=== PATIENT | male | born 1975 | race Caucasian/White ===

== ENCOUNTER 2017-11-18 17:59 | Emergency (ER) | payer SELFPAY ==
--- NOTE | 2017-11-18 18:48 | RAD REPORT ---
EXAM DESCRIPTION: CT - Head Brain Wo Cont - 11/18/2017 6:25 pm CLINICAL HISTORY: Right arm and leg numbness COMPARISON: None. TECHNIQUE: Axial 5 mm thick images of the head were obtained without IV contrast. All CT scans are performed using dose optimization technique as appropriate and may include automated exposure control or mA/KV adjustment according to patient size. FINDINGS: No intracranial hemorrhage, mass, edema or shift of mid-line structures. No acute infarcti on changes seen. No abnormal extra-axial fluid collections. Ventricles are normal. Mastoid air cells are clear. Patchy paranasal sinus mucosal thickening. No air-fluid level. No acute bony findings. Exam is degraded by motion. IMPRESSION: Negative non-contrast CT head examination for acute finding.
[2017-11-18 18:53] LABS: Protime INR 0.98
[2017-11-18 18:54] LABS: Absolute Monocytes 0.5 K/uL (0.1-1.3); Absolute Neutrophil 2.4 K/uL (1.8-8.0); Basophils % 0.9 % (0-1.3); Hematocrit 39.3 % (39.6-49.0); Lymphocytes % 35.9 % (15.3-44.8); MCH 31.8 pg (27.0-35.0); MCV 93.4 fL (80-100); RBC Red Blood Cell Count 4.21 M/uL (4.33-5.43)
--- NOTE | 2017-11-18 19:18 | RAD REPORT ---
EXAM DESCRIPTION: RAD - Chest Single View - 11/18/2017 6:35 pm CLINICAL HISTORY: Shortness of breath, code stroke COMPARISON: December 2016 TECHNIQUE: AP portable chest image was obtained 1834 hours . FINDINGS: Low lung volumes noted similar to comparison. No peripheral mass or consolidation. No acut e failure or volume overload findings. Lung markings are similar to comparison. Heart and vasculature are normal. No measurable pleural effusion and no pneumothorax. No gross bony abnormality seen. No a cute aortic findings suspected. IMPRESSION: No acute cardiopulmonary process. No significant change from comparison.
[2017-11-18 19:35] LABS: Bicarbonate 24 mEq/L (21-31); Glucose Level 97 mg/dL (65-120); Sodium Level 135 mEq/L (135-145)
[2017-11-18 19:41] LABS: ALT/SGPT 50 IU/L (10-60); AST/SGOT 58 IU/L (10-42); Albumin 4.5 g/dL (3.2-5.5); Alkaline Phosphatase 68 IU/L (42-121); BUN Blood Urea Nitrogen 7 mg/dL (6-20); Bilirubin Direct 0.1 mg/dL (0-0.2); Bilirubin Total 0.3 mg/dL (0.3-1.2); Creatine Phosphokinase 258 IU/L (22-269)
[2017-11-18] MEDS ORDERED: NA CHLORIDE 0.9% 1,000 ML ONE ×2 (19:41→19:42)
[2017-11-18] MEDS ORDERED: THIAMINE 200 MG/2 ML INJ ONE (19:42)
[2017-11-18] MEDS ORDERED: FOLIC ACID 5 MG/ML VIAL ONE (19:44)
[2017-11-18] MEDS ORDERED: ONDANSETRON 4 MG/2 ML VIAL ONE (19:47)
[2017-11-18 19:50] LABS: Alcohol Serum/Plasma 414 mg/dl
--- NOTE | 2017-11-18 20:07 | ER ---
Nurse's Notes [facility] Name: Ned Stallworth Age: 42 yrs Sex: Male : 1975 Arrival Date: 11/18/2017 Time: 18:02 Bed 6 Private MD: None, None Diagnosis: Chest pain, unspecified;Alcohol abuse;Alcohol abuse counseling and surveillance Presentation: 11/18 18:04 Presenting complaint: Child states: "He's been saying that he feels like he's having a sv stroke. Saying that he can't lift his right arm or leg." Pt states he's unable to lift his right arm, movement noted to right arm slightly. Pt reports he's been on a "binger" for the past 2 months. Pt has been drinking beer all day. Daughter reports that he was also saying that he's been having chest pain. Pt reports not being able to lift his right arm about 5 hours ago. Transition of care: patient was not received from another setting of care. Onset of symptoms was November 18, 2017. 18:04 Method Of Arrival: Wheelchair sv 18:04 Acuity: ALISTAIR 2 sv 18:10 Care prior to arrival: None. sv 19:05 Risk Assessment: Do you want to hurt yourself or someone else? Patient reports no ph desire to harm self or others. Initial Sepsis Screen: Does the patient meet any 2 criteria? No. Patient's initial sepsis screen is negative. Does the patient have a suspected source of infection? No. Patient's initial sepsis screen is negative. Historical: - Allergies: 18:09 No Known Allergies; sv - Home Meds: 18:09 aspirin 81 mg Oral TbEC once daily [Active]; sv - PMHx: 18:09 Alcoholism; sv - PSHx: 18:09 Knee surgery; sv - Immunization history:: Adult Immunizations up to date. - Social history:: Smoking status: Patient/guardian denies using tobacco, Patient uses alcohol, on a daily basis. - Ebola Screening: : No symptoms or risks identified at this time. Screenin:04 Abuse screen: Denies threats or abuse. Denies injuries from another. Nutritional ph screening: No deficits noted. Tuberculosis screening: No symptoms or risk factors identified. Fall Risk None identified. Assessment: 18:25 Reassessment: back from CT. Pt is talking and joking with hospital staff. Lab at bedside to obtain lab samples. OLE Diaz also at bedside to assess patient. 18:35 General: Appears in no apparent distress. comfortable, slender, well groomed, Behavior ph is calm, cooperative, appropriate for age, Smells of alcohol. Pain: Complains of pain in right clavicle and anterior aspect of right upper chest Pain radiates to right arm Quality of pain is described as tingling, numb, Pain began 6 hours ago. Neuro: Level of Consciousness is awake, alert, obeys commands, Oriented to person, place, time, situation, Moves all extremities. Full function Speech is normal, Facial symmetry appears normal, Facial symmetry: tongue is midline, Pupils are PERRLA, Intact Reports numbness in right arm Denies weakness dizziness, difficulty swallowing, headache. Cardiovascular: Reports chest pain, Denies lightheadedness, nausea, shortness of breath, Capillary refill < 3 seconds Patient's skin is warm and dry. Chest pain quality is tingling" is located in right anterior chest wall radiates to right arm(s). Respiratory: Airway is patent Respiratory effort is even, unlabored, Respiratory pattern is regular, symmetrical, Denies cough. GI: No signs and/or symptoms were reported involving the gastrointestinal system. Derm: Skin is intact, is healthy with good turgor, Skin is pink, warm \\T\\ dry. Musculoskeletal: Circulation, motion, and sensation intact. Range of motion: intact in all extremities. 20:00 Reassessment: Explained to pt that he needs fluids and that we could send him home tl2 after fluids infuse, pt understood and was cooperative. A few minutes after I left room, pt had pulled IV out and said he wanted to go home. OLE Braden at bedside to talk to pt. 20:14 Reassessment: pt left prior to signing d/c paperwork.. ak1 Vital Signs: 18:13 BP 133 / 83; Pulse 76; Resp 18; Pulse Ox 98% ; Weight 86.18 kg; Height 6 ft. (182.88 sv cm); 18:13 Body Mass Index 25.77 (86.18 kg, 182.88 cm) sv NIH Stroke Scale Scores: 19:24 NIHSS Score: 0 jr8 ED Course: 18:02 Patient arrived in ED. mr 18:02 None, None is Private Physician. mr 18:08 Triage completed. sv 18:09 Arm band placed on left wrist. sv 18:15 Sampson Tolbert PA is PHCP. jr8 18:15 Reyes Chance MD is Attending Physician. jr8 18:[address], RN is Primary Nurse. sg 18:20 Marcie Jacinto, RN is Primary Nurse. sg 18:26 CT Head Brain wo Cont In Process Unspecified. EDMS 18:33 X-ray completed. Portable x-ray completed in exam room. Patient tolerated procedure mh1 well. 18:36 Chest Single View In Process Unspecified. EDMS 19:05 Patient has correct armband on for positive identification. Bed in low position. Call ph light in reach. Pulse ox on. NIBP on. Warm blanket given. Pillow given. 19:06 No provider procedures requiring assistance completed. ph 19:48 Inserted saline lock: 20 gauge in left antecubital area, using aseptic technique. ak1 20:10 IV discontinued, pt tore out his own IV. ak1 Administered Medications: 19:47 Drug: NS 0.9% 1000 ml Route: IV; Rate: 1000 ml; Site: left antecubital; ak1 20:11 Follow up: IV Status: pt removed his IV ak1 19:53 Drug: Zofran 4 mg Route: IVP; Site: right antecubital; tl2 20:12 Follow up: Response: No adverse reaction ak1 19:54 Drug: Banana Bag - (NS 0.9% 1000 ml, foLIC Acid 1 mg, Thiamine 100 mg, Multivitamin 1 tl2 amp) Route: IV; Rate: calculated rate; Site: right antecubital; 20:11 Follow up: IV Status: pt removed his IV ak1 Point of Care Testing: Blood Glucose: 18:09 Blood Glucose: 84 mg/dL; sv Ranges: Outcome: 20:06 Discharge ordered by . jr8 20:08 Discharged to home ambulatory, with family, pt tore out his IV and refused fluids. pt ak1 mother taking pt home. 20:08 Condition: stable 20:08 Discharge instructions given to patient, family, Instructed on discharge instructions, follow up and referral plans. 20:14 Patient left the ED. ak1 NIH Stroke Scale - NIH Stroke Score Date: 11/18/2017 Time: 19:24 Total Score = 0 1a. Level of Consciousness (LOC) - 0(Alert) 1b. Level of Consciousness (LOC) (Year \\T\\ Age) - 0(Both) 1c. LOC Commands (Open \\T\\ Closes Eyes/Special Effects Designer) - 0(Both) 2. Best Gaze (Lateral Gaze Paresis) - 0(Normal) 3. Visual Field Loss - 0(No visual loss) 4. Facial Palsy - 0(Normal) 5a. Left Arm: Motor (10-second hold) - 0(No drift) 5b. Right Arm: Motor (10-second hold) - 0(No drift) 6a. Left Leg: Motor (5-second hold - always test supine) - 0(No drift) 6b. Right Leg: Motor (5-second hold - always test supine) - 0(No drift) 7. Limb Ataxia (finger/nose \\T\\ heel/rolle - test with eyes open) - 0(Absent) 8. Sensory Loss (pinprick arms/legs/face) - 0(Normal) 9. Best Language: Aphasia (description/naming/reading) - 0(No aphasia) 10. Dysarthria (speech clarity - read or repeat words) - 0(Normal) 11. Extinction and Inattention (visual/tactile/auditory/spatial/personal) - 0(No abnormality) Initials: jrFrancois Signatures: Dispatcher [employer] Pati Michael RN RN sv Gay, Steven RN AUBREY Trinity Sena Jenny Lilly 1 Amy Martin RN RN ss Sampson Tolbert PA PA jr8 Cortney Avery RN RN ak1 Marcie Jacinto RN RN Shanita Kent, AUBREY RN tl2 Corrections: (The following items were deleted from the chart) 18:11 18:04 Presenting complaint: Child states: "He's been saying that he feels like sv he's having a stroke. Saying that he can't lift his right arm or leg." Pt states he's unable to lift his left arm, movement noted to right arm slightly. Pt reports he's been on a "binger" for the past 2 months. Pt has been drinking beer all day. Daughter reports that he was also saying that he's been having chest pain. sv
--- NOTE | 2017-11-18 20:08 | EDPHYS ---
Physician Documentation [facility] Name: Ned Stallworth Age: 42 yrs Sex: Male : 1975 Arrival Date: 11/18/2017 Time: 18:02 Bed 6 Private MD: None, None ED Physician Reyes Chance HPI: 11/18 19:24 This 42 yrs old Male presents to ER via Wheelchair with complaints of jr8 Numbness Of Arm/chest pain. 19:24 The patient or guardian reports chest pain that is located primarily in the anterior jr8 chest wall, right. Onset: acutely, today. The pain radiates to the right arm. Associated signs and symptoms: The patient has no apparent associated signs or symptoms. The chest pain is described as sharp. Duration: The patient or guardian reports multiple episodes. Modifying factors: The symptoms are alleviated by nothing. the symptoms are aggravated by movement, palpation of area. Severity of pain: At its worst the pain was mild in the emergency department the pain is unchanged. The patient has not experienced similar symptoms in the past. The patient has not recently seen a physician. Patient stated that his daughter made him come up here. Stated that he was having right sided chest pain and could not move his arm. Had numbness and tingling to arm. Denies having this in past. Denies trauma. Stated that he has had upwards of 30 beers today. Has been binge drinking for the past few weeks . Historical: - Allergies: 18:09 No Known Allergies; sv - Home Meds: 18:09 aspirin 81 mg Oral TbEC once daily [Active]; sv - PMHx: 18:09 Alcoholism; sv - PSHx: 18:09 Knee surgery; sv - Immunization history:: Adult Immunizations up to date. - Social history:: Smoking status: Patient/guardian denies using tobacco, Patient uses alcohol, on a daily basis. - Ebola Screening: : No symptoms or risks identified at this time. ROS: 19:24 Eyes: Negative for injury, pain, redness, and discharge, ENT: Negative for injury, jr8 pain, and discharge, Neck: Negative for injury, pain, and swelling, Respiratory: Negative for shortness of breath, cough, wheezing, and pleuritic chest pain, Abdomen/GI: Negative for abdominal pain, nausea, vomiting, diarrhea, and constipation, Back: Negative for injury and pain, MS/Extremity: Negative for injury and deformity, Skin: Negative for injury, rash, and discoloration. 19:24 Cardiovascular: Positive for chest pain, Negative for edema, orthopnea, palpitations, paroxysmal nocturnal dyspnea. 19:24 Neuro: Positive for numbness, tingling, weakness, of the right arm. Exam: 19:24 Head/Face: Normocephalic, atraumatic. Eyes: Pupils equal round and reactive to light, jr8 extra-ocular motions intact. Lids and lashes normal. Conjunctiva and sclera are non-icteric and not injected. Cornea within normal limits. Periorbital areas with no swelling, redness, or edema. ENT: Nares patent. No nasal discharge, no septal abnormalities noted. Tympanic membranes are normal and external auditory canals are clear. Oropharynx with no redness, swelling, or masses, exudates, or evidence of obstruction, uvula midline. Mucous membranes moist. Neck: Trachea midline, no thyromegaly or masses palpated, and no cervical lymphadenopathy. Supple, full range of motion without nuchal rigidity, or vertebral point tenderness. No Meningismus. Cardiovascular: Regular rate and rhythm with a normal S1 and S2. No gallops, murmurs, or rubs. Normal PMI, no JVD. No pulse deficits. Respiratory: Lungs have equal breath sounds bilaterally, clear to auscultation and percussion. No rales, rhonchi or wheezes noted. No increased work of breathing, no retractions or nasal flaring. Abdomen/GI: Soft, non-tender, with normal bowel sounds. No distension or tympany. No guarding or rebound. No evidence of tenderness throughout. Back: No spinal tenderness. No costovertebral tenderness. Full range of motion. Skin: Warm, dry with normal turgor. Normal color with no rashes, no lesions, and no evidence of cellulitis. MS/ Extremity: Pulses equal, no cyanosis. Neurovascular intact. Full, normal range of motion. Pain with range of motion Neuro: Awake and alert, GCS 15, oriented to person, place, time, and situation. Cranial nerves II-XII grossly intact. Motor strength 5/5 in all extremities. Sensory grossly intact. Cerebellar exam normal. Normal gait. 19:24 Chest/axilla: Inspection: normal, Palpation: tenderness, that is moderate, of the jr8 right clavicle and anterior aspect of right upper chest. Vital Signs: 18:13 BP 133 / 83; Pulse 76; Resp 18; Pulse Ox 98% ; Weight 86.18 kg; Height 6 ft. (182.88 sv cm); 18:13 Body Mass Index 25.77 (86.18 kg, 182.88 cm) sv NIH Stroke Scale Scores: 19:24 NIHSS Score: 0 jr8 MDM: 18:15 Patient medically screened. 8 19:28 ED course: Patient initially presented with chest pain and arm pain. Stated to triage jr8 that he was having trouble moving arm. Patient inebriated. Stated that it started about 5 hours ago. Patient out of stroke window. Patient with no deficits. Based on physical exam and initial questioning by me it does not appear that he has had a stroke. S/S do no indicate subacute or acute stroke. More then likely intoxication with atypical chest pain . 20:02 Differential diagnosis: acute myocardial infarction, acute pericarditis, chest wall jr8 pain, pneumonia, pulmonary embolus, thoracic aortic disection, unstable angina, CVA, TIA, ETOH abuse with intoxication. Data reviewed: vital signs, nurses notes, lab test result(s), EKG, radiologic studies, CT scan, plain films. ED course: Mother of patient present in room. Patient alert to person, place, time, event. Patient wants to go home and does not want fluids. Patient hemodynamically stable. Labs normal. Negative troponin, xray, ekg, and CT of head. Can move legs and arms. Continues to have no s/s for acute stroke. Mother willing to watch over him at home. Recommended he get help for his drinking. If he were to worsen to come back. . 11/18 18:12 Order name: Glucose, Ancillary Testing; Complete Time: 18:21 EDME 11/18 18:16 Order name: Basic Metabolic Panel; Complete Time: 19:53 [facility] 11/18 18:16 Order name: CBC with Diff; Complete Time: 19:14 [facility] 11/18 18:16 Order name: ETOH Level; Complete Time: 19:53 [facility] 11/18 18:16 Order name: Hepatic Function; Complete Time: 19:53 [facility] 11/18 18:16 Order name: PT-INR; Complete Time: 19:04 [facility] 11/18 18:17 Order name: CPK; Complete Time: 19:53 [facility] 11/18 18:17 Order name: Troponin (emerg Dept Use Only); Complete Time: 19:14 [facility] 11/18 18:17 Order name: CT Head Brain wo Cont; Complete Time: 18:51 [facility] 11/18 18:36 Order name: Magnesium; Complete Time: 19:53 EDMS 11/18 19:59 Order name: Urine Dipstick--Ancillary (enter results) eb 11/18 19:59 Order name: Urine Dipstick-Ancillary EDME 11/18 18:16 Order name: EKG - Nurse/Tech; Complete Time: 19:07 [facility] 11/18 18:16 Order name: IV Saline Lock; Complete Time: 19: [facility] 11/18 18:16 Order name: Labs collected and sent; Complete Time: 19:07 [facility] 11/18 18:16 Order name: Urine Dipstick-Ancillary (obtain specimen); Complete Time: 19:48 [facility] 11/18 18:17 Order name: Accucheck; Complete Time: 19:07 [facility] 11/18 18:17 Order name: Cardiac monitoring; Complete Time: 19:07 [facility] 11/18 18:17 Order name: NPO; Complete Time: 19:07 [facility] 11/18 18:17 Order name: O2 Per Protocol; Complete Time: 19:11 [facility] 11/18 18:17 Order name: O2 Sat Monitoring; Complete Time: 19:11 [facility] 11/18 18:34 Order name: Chest Single View; Complete Time: 19:23 EDMS Administered Medications: 19:47 Drug: NS 0.9% 1000 ml Route: IV; Rate: 1000 ml; Site: left antecubital; ak1 20:11 Follow up: IV Status: pt removed his IV ak1 19:53 Drug: Zofran 4 mg Route: IVP; Site: right antecubital; tl2 20:12 Follow up: Response: No adverse reaction ak1 19:54 Drug: Banana Bag - (NS 0.9% 1000 ml, foLIC Acid 1 mg, Thiamine 100 mg, Multivitamin 1 tl2 amp) Route: IV; Rate: calculated rate; Site: right antecubital; 20:11 Follow up: IV Status: pt removed his IV ak1 Point of Care Testing: Blood Glucose: 18:09 Blood Glucose: 84 mg/dL; sv Ranges: Critical Glucose Levels:Adult <50 mg/dl or >400 mg/dl <40 mg/dl or >180 mg/dl Disposition: 11/19 07:26 Co-signature as Attending Physician, Reyes Chance MD I agree with the assessment and anabel plan of care. Disposition: 11/18/17 20:06 Discharged to Home. Impression: Chest pain, unspecified, Alcohol abuse, Alcohol abuse counseling and surveillance. - Condition is Stable. - Discharge Instructions: Alcohol and Drug Addiction, Finding Treatment, Alcohol Intoxication, Nonspecific Chest Pain, Chest Wall Pain, Alcohol Abuse and Nutrition, Aspirin and Your Heart. - Medication Reconciliation Form, Thank You Letter, Antibiotic Education, Prescription Opioid Use form. - Follow up: Private Physician; When: Tomorrow; Reason: Recheck today's complaints, Continuance of care, Re-evaluation by your physician. - Problem is new. - Symptoms have improved. NIH Stroke Scale - NIH Stroke Score Date: 11/18/2017 Time: 19:24 Total Score = 0 1a. Level of Consciousness (LOC) - 0(Alert) 1b. Level of Consciousness (LOC) (Year \T\ Age) - 0(Both) 1c. LOC Commands (Open \T\ Closes Eyes/Senior Windows Administrator) - 0(Both) 2. Best Gaze (Lateral Gaze Paresis) - 0(Normal) 3. Visual Field Loss - 0(No visual loss) 4. Facial Palsy - 0(Normal) 5a. Left Arm: Motor (10-second hold) - 0(No drift) 5b. Right Arm: Motor (10-second hold) - 0(No drift) 6a. Left Leg: Motor (5-second hold - always test supine) - 0(No drift) 6b. Right Leg: Motor (5-second hold - always test supine) - 0(No drift) 7. Limb Ataxia (finger/nose \T\ heel/rolle - test with eyes open) - 0(Absent) 8. Sensory Loss (pinprick arms/legs/face) - 0(Normal) 9. Best Language: Aphasia (description/naming/reading) - 0(No aphasia) 10. Dysarthria (speech clarity - read or repeat words) - 0(Normal) 11. Extinction and Inattention (visual/tactile/auditory/spatial/personal) - 0(No abnormality) Initials: 8 Signatures: Dispatcher [employer] EDME Pati Ferrer RN Reyes Carrington MD MD cha Roszak, Josh, PA PA jr8 Cortney Avery RN RN ak1 Marcie Jacinto RN RN Shanita Lee, RN RN tl2 Corrections: (The following items were deleted from the chart) 11/18 18:36 18:19 MAGNESIUM+[id number].[email or web address].BRZ ordered. [facility] EDME 19:32 19:28 ED course: Patient initially presented with chest pain and arm pain. jr8 Stated to triage that he was having trouble moving arm. Patient inebriated. Stated that it started about 5 hours ago. Patient out of stroke window. Patient with no deficits. Based on physical exam and initial questioning by me it does not appear that he has had a stroke. S/S do no indicate subacute or acute stroke . jr8 20:06 19:24 Head/Face: Normocephalic, atraumatic. Eyes: Pupils equal round and jr8 reactive to light, extra-ocular motions intact. Lids and lashes normal. Conjunctiva and sclera are non-icteric and not injected. Cornea within normal limits. Periorbital areas with no swelling, redness, or edema. ENT: Nares patent. No nasal discharge, no septal abnormalities noted. Tympanic membranes are normal and external auditory canals are clear. Oropharynx with no redness, swelling, or masses, exudates, or evidence of obstruction, uvula midline. Mucous membranes moist. Neck: Trachea midline, no thyromegaly or masses palpated, and no cervical lymphadenopathy. Supple, full range of motion without nuchal rigidity, or vertebral point tenderness. No Meningismus. Cardiovascular: Regular rate and rhythm with a normal S1 and S2. No gallops, murmurs, or rubs. Normal PMI, no JVD. No pulse deficits. Respiratory: Lungs have equal breath sounds bilaterally, clear to auscultation and percussion. No rales, rhonchi or wheezes noted. No increased work of breathing, no retractions or nasal flaring. Abdomen/GI: Soft, non-tender, with normal bowel sounds. No distension or tympany. No guarding or rebound. No evidence of tenderness throughout. Back: No spinal tenderness. No costovertebral tenderness. Full range of motion. Skin: Warm, dry with normal turgor. Normal color with no rashes, no lesions, and no evidence of cellulitis. MS/ Extremity: Pulses equal, no cyanosis. Neurovascular intact. Full, normal range of motion. Neuro: Awake and alert, GCS 15, oriented to person, place, time, and situation. Cranial nerves II-XII grossly intact. Motor strength 5/5 in all extremities. Sensory grossly intact. Cerebellar exam normal. Normal gait. jr8 20:14 20:06 11/18/2017 20:06 Discharged to Home. Impression: Chest pain, unspecified; ak1 Alcohol abuse; Alcohol abuse counseling and surveillance. Condition is Stable. Forms are Medication Reconciliation Form, Thank You Letter, Antibiotic Education, Prescription Opioid Use. Follow up: Private Physician; When: Tomorrow; Reason: Recheck today's complaints, Continuance of care, Re-evaluation by your physician. Problem is new. Symptoms have improved. jr8
[2017-11-18 20:30] LABS: Urine Blood NEGATIVE (NEG); Urine Glucose NEGATIVE (NEG); Urine Protein NEGATIVE (NEG); Urine Specific Gravity 1.005 (1.005-1.030); Urine pH 5.5 (5.0-7.0)
== END 2017-11-18 20:14 | disposition home or self-care (01) ==
LOC: ER 17:59
DX: F10.10 Alcohol abuse, uncomplicated (principal); Z71.41 Alcohol abuse counseling and surveillance of alcoholic
CPT/HCPCS: 36415; 70450; 71045; 80048; 80076; 80320; 81003; 82550; 82962; 83735; 84484; 85025; 85610; 96365; 96375; 99284; J2405; J3411; J7030

== ENCOUNTER 2018-02-12 20:54 | Emergency (ER) | payer SELFPAY ==
[2018-02-12] MEDS ORDERED: NA CHLORIDE 0.9% 1,000 ML ONE (21:44)
[2018-02-12] MEDS ORDERED: ONDANSETRON 4 MG/2 ML VIAL ONE (21:44)
[2018-02-12] MEDS ORDERED: DIAZEPAM 10 MG/2 ML INJ SYRINGE ONE (21:49)
--- NOTE | 2018-02-12 22:12 | ER ---
Nurse's Notes [facility] Name: Ned Stallworth Age: 42 yrs Sex: Male : 1975 Arrival Date: 02/12/2018 Time: 20:55 Bed 25 Private MD: Diagnosis: Alcohol abuse with intoxication, unspecified Presentation: 02/12 21:04 Presenting complaint: Patient states: I'm an alcoholic and I recently tried to quit but tl2 I think I've had two seizures in the last month. Today I drank 30 beers because I feel sick when I don't drink. Today I tensed up and started shaking. Pt states he remembers the event but feels out of it. Pt AOx4. Transition of care: patient was not received from another setting of care. Onset of symptoms was February 12, 2018 at 19:00. Risk Assessment: Do you want to hurt yourself or someone else? Patient reports no desire to harm self or others. Initial Sepsis Screen: Does the patient meet any 2 criteria? No. Patient's initial sepsis screen is negative. Does the patient have a suspected source of infection? No. Patient's initial sepsis screen is negative. Care prior to arrival: None. 21:04 Method Of Arrival: Wheelchair tl2 21:04 Acuity: ALISTAIR 3 tl2 Triage Assessment: 21:05 General: Appears in no apparent distress. uncomfortable, Behavior is cooperative, tl2 appropriate for age, anxious. Pain: Complains of pain in chest Pain does not radiate. Neuro: Level of Consciousness is awake, alert, obeys commands, Oriented to person, place, time, situation. Historical: - Allergies: 21:05 No Known Allergies; tl2 - Home Meds: 21:05 aspirin 81 mg Oral TbEC once daily [Active]; tl2 - PMHx: 21:05 Alcoholism; tl2 - PSHx: 21:05 None; tl2 - Immunization history:: Adult Immunizations up to date. - Social history:: Smoking status: Patient/guardian denies using tobacco, Patient uses alcohol, on a daily basis. 12-18 beers/day. - Ebola Screening: : No symptoms or risks identified at this time. Screenin:07 Abuse screen: Denies threats or abuse. Nutritional screening: No deficits noted. tl2 Tuberculosis screening: No symptoms or risk factors identified. Fall Risk None identified. Assessment: 21:58 General: Appears well groomed, well developed, well nourished, Behavior is calm, tl3 cooperative, appropriate for age, anxious. Pain: Complains of pain in chest. Neuro: Level of Consciousness is awake, alert, obeys commands, Oriented to person, place, time, situation, Appropriate for age. Neuro: Reports possible seizure tonight. Cardiovascular: Patient's skin is warm and dry. Respiratory: Airway is patent Respiratory effort is even, unlabored, Respiratory pattern is regular, symmetrical, Breath sounds are clear bilaterally. GI: Reports nausea. : No signs and/or symptoms were reported regarding the genitourinary system. EENT: No signs and/or symptoms were reported regarding the EENT system. Derm: No signs and/or symptoms reported regarding the dermatologic system. Musculoskeletal: No signs and/or symptoms reported regarding the musculoskeletal system. 22:30 Reassessment: Patient appears in no apparent distress at this time. No changes from mg2 previously documented assessment. Patient and/or family updated on plan of care and expected duration. Pain level reassessed. Patient is alert, oriented x 3, equal unlabored respirations, skin warm/dry/pink. fluids complete. Vital Signs: 21:05 BP 159 / 91; Pulse 120; Resp 20; Temp 98.8(O); Pulse Ox 96% on R/A; Weight 90.72 kg; tl2 Height 6 ft. 0 in. (182.88 cm); Pain 7/10; 22:30 BP 139 / 88; Pulse 105; Resp 18; Pulse Ox 99% on R/A; mg2 21:05 Body Mass Index 27.12 (90.72 kg, 182.88 cm) tl2 [place] Coma Score: 21:05 Eye Response: spontaneous(4). Verbal Response: oriented(5). Motor Response: obeys tl2 commands(6). Total: 15. ED Course: 20:55 Patient arrived in ED. ds1 21:03 Jenaro Elliott MD is Attending Physician. gs 21:05 Triage completed. tl2 21:05 Arm band placed on right wrist. tl2 21:07 Patient has correct armband on for positive identification. Placed in gown. Bed in low tl2 position. Call light in reach. Side rails up X2. 21:58 Matheson, Ira, RN is Primary Nurse. tl3 22:01 Pulse ox on. NIBP on. tl3 22:01 Inserted saline lock: 20 gauge in left antecubital area, using aseptic technique. tl3 22:01 No provider procedures requiring assistance completed. EKG done, by ED staff. tl3 22:30 IV discontinued, intact, bleeding controlled, No redness/swelling at site. Pressure mg2 dressing applied. 22:46 Seizure precautions initiated. mg2 Administered Medications: 21:43 Drug: NS 0.9% 1000 ml Route: IV; Rate: 1 bolus; Site: left antecubital; mg2 22:45 Follow up: IV Status: Completed infusion; IV Intake: 1000ml mg2 21:43 Drug: Zofran 4 mg Route: IVP; Site: left antecubital; mg2 22:44 Follow up: Response: No adverse reaction; Nausea is decreased mg2 22:04 Drug: Valium 5 mg Route: IVP; Site: left antecubital; mg2 22:45 Follow up: Response: No adverse reaction; Anxiety decreased mg2 Intake: 22:45 IV: 1000ml; Total: 1000ml. mg2 Outcome: 22:11 Discharge ordered by . 22:30 Discharged to home ambulatory. mg2 22:30 Condition: stable 22:30 Discharge instructions given to patient, Instructed on discharge instructions, Demonstrated understanding of instructions, follow-up care, medications, Prescriptions given X 1, stressed concern about drinking and encouraged patient to seek help with cessation 22:47 Patient left the ED. mg2 Signatures: Marya Wan ds1 Shanita Kent RN RN tl2 Jenaro Elliott MD MD Ira Rosenthal, AUBREY RN tl3 Nam Crabtree RN RN mg2
--- NOTE | 2018-02-12 22:12 | EDPHYS ---
Physician Documentation [facility] Name: Ned Stallworth Age: 42 yrs Sex: Male : 1975 Arrival Date: 02/12/2018 Time: 20:55 Bed 25 Private MD: ED Physician Jenaro Elliott HPI: 02/12 22:02 This 42 yrs old Male presents to ER via Wheelchair with complaints of Seizure.gs 22:02 The patient presents after having a single isolated seizure. Character of seizure(s): gs Motor activity: focal activity, Incontinence: none, Apnea: the patient did not experience apnea, Circulation: the patient did not experience evidence of pulse disturbance, says was alert to events during. Seizure onset: today. Seizure Hx: usually alcohol or alcohol withdrawal related. Associated injury: The patient did not suffer any apparent associated injury. Current symptoms: Currently, the patient is not experiencing any symptoms, intoxicated. The patient has experienced similar episodes in the past, a few times. requesting detox from [facility]. Historical: - Allergies: 21:05 No Known Allergies; tl2 - Home Meds: 21:05 aspirin 81 mg Oral TbEC once daily [Active]; tl2 - PMHx: 21:05 Alcoholism; tl2 - PSHx: 21:05 None; tl2 - Immunization history:: Adult Immunizations up to date. - Social history:: Smoking status: Patient/guardian denies using tobacco, Patient uses alcohol, on a daily basis. 12-18 beers/day. - Ebola Screening: : No symptoms or risks identified at this time. ROS: 22:02 All other systems are negative. gs Exam: 22:02 Head/Face: Normocephalic, atraumatic. Eyes: Pupils equal round and reactive to light, gs extra-ocular motions intact. Lids and lashes normal. Conjunctiva and sclera are non-icteric and not injected. Cornea within normal limits. Periorbital areas with no swelling, redness, or edema. ENT: Nares patent. No nasal discharge, no septal abnormalities noted. Tympanic membranes are normal and external auditory canals are clear. Oropharynx with no redness, swelling, or masses, exudates, or evidence of obstruction, uvula midline. Mucous membranes moist. Neck: Trachea midline, no thyromegaly or masses palpated, and no cervical lymphadenopathy. Supple, full range of motion without nuchal rigidity, or vertebral point tenderness. No Meningismus. Chest/axilla: Normal chest wall appearance and motion. Nontender with no deformity. No lesions are appreciated. Respiratory: Lungs have equal breath sounds bilaterally, clear to auscultation and percussion. No rales, rhonchi or wheezes noted. No increased work of breathing, no retractions or nasal flaring. Abdomen/GI: Soft, non-tender, with normal bowel sounds. No distension or tympany. No guarding or rebound. No evidence of tenderness throughout. Back: No spinal tenderness. No costovertebral tenderness. Full range of motion. Skin: Warm, dry with normal turgor. Normal color with no rashes, no lesions, and no evidence of cellulitis. MS/ Extremity: Pulses equal, no cyanosis. Neurovascular intact. Full, normal range of motion. 22:02 Constitutional: The patient appears alert, awake. 22:02 Cardiovascular: Rate: tachycardic, Rhythm: regular, Pulses: no pulse deficits are appreciated. 22:02 Neuro: Orientation: is normal, Mentation: is normal, Memory: is normal, Cranial nerves: CN II- XII are normal as tested, Cerebellar function: is grossly normal, Motor: Sensation: is normal, seizure activity, is not displayed by the patient, Abnormal movements: there are no abnormal movements. 22:02 Psych: Patient has no thoughts/intents to harm self or others. Vital Signs: 21:05 BP 159 / 91; Pulse 120; Resp 20; Temp 98.8(O); Pulse Ox 96% on R/A; Weight 90.72 kg; tl2 Height 6 ft. 0 in. (182.88 cm); Pain 7/10; 22:30 BP 139 / 88; Pulse 105; Resp 18; Pulse Ox 99% on R/A; mg2 21:05 Body Mass Index 27.12 (90.72 kg, 182.88 cm) tl2 [place] Coma Score: 21:05 Eye Response: spontaneous(4). Verbal Response: oriented(5). Motor Response: obeys tl2 commands(6). Total: 15. MDM: 21:18 Patient medically screened. 22:02 Data reviewed: vital signs, nurses notes. gs Administered Medications: 21:43 Drug: NS 0.9% 1000 ml Route: IV; Rate: 1 bolus; Site: left antecubital; mg2 22:45 Follow up: IV Status: Completed infusion; IV Intake: 1000ml mg2 21:43 Drug: Zofran 4 mg Route: IVP; Site: left antecubital; mg2 22:44 Follow up: Response: No adverse reaction; Nausea is decreased mg2 22:04 Drug: Valium 5 mg Route: IVP; Site: left antecubital; mg2 22:45 Follow up: Response: No adverse reaction; Anxiety decreased mg2 Disposition: 02/12/18 22:11 Discharged to Home. Impression: Alcohol abuse with intoxication, unspecified. - Condition is Stable. - Discharge Instructions: Alcohol Intoxication, Alcohol Withdrawal, [id number]. - Prescriptions for Valium 10 mg Oral Tablet - take 1 tablet by ORAL route every 8 hours as tolerated for alcohol withdrawl symptoms; 30 tablet. - Medication Reconciliation Form, Thank You Letter, Antibiotic Education, Prescription Opioid Use form. - Follow up: Private Physician; When: 2 - 3 days; Reason: Re-evaluation by your physician. Signatures: Shanita Kent RN RN tl2 Jenaro Elliott MD MD gs Nam Crabtree RN RN mg2 Corrections: (The following items were deleted from the chart) 22:47 22:11 02/12/2018 22:11 Discharged to Home. Impression: Alcohol abuse with intoxication, mg2 unspecified. Condition is Stable. Forms are Medication Reconciliation Form, Thank You Letter, Antibiotic Education, Prescription Opioid Use. Follow up: Private Physician; When: 2 - 3 days; Reason: Re-evaluation by your physician.
--- NOTE | 2018-02-14 08:37 | EKG ---
Test Date: 2018-02-12 Test Time: 21:09:10 Director Safety: TL MEASUREMENT RESULTS: Intervals: Rate: 102 WY: 122 QRSD: 80 QT: 352 QTc: 458 [place]: P: 82 WY: 122 QRS: 43 T: 69 INTERPRETIVE STATEMENTS: Sinus tachycardia Otherwise normal ECG Compared to ECG 12/27/2016 17:17:25 Sinus rhythm no longer present Electronically Signed On 02-14-18 08:35:53 CDT by Daniel Griffin
== END 2018-02-12 22:47 | disposition home or self-care (01) ==
LOC: ER 20:54
DX: F10.229 Alcohol dependence with intoxication, unspecified (principal); Z79.82 Long term (current) use of aspirin
CPT/HCPCS: 82962; 93005; 96361; 96374; 96375; 99284; J2405; J3360; J7030

== ENCOUNTER 2019-07-16 22:53 | Observation (INO) | payer SELFPAY ==
--- OUTSIDE RECORDS SUMMARY | 2019-07-16 22:55 | XMS REPORT ---
:1975 [facility] Address [address] [place] [address] [address] [place] [address] Care Team Providers Name Role Phone Unavailable Unavailable Unavailable Problems This patient has no known problems. Allergies, Adverse Reactions, Alerts This patient has no known allergies or adverse reactions. Medications This patient has no known medications.
[2019-07-17 00:02] LABS: Absolute Lymphocytes (CBC) 1.3 K/uL (0.7-4.9); Basophils % 0.5 % (0-1.3); Hematocrit 42.4 % (39.6-49.0); Lymphocytes % 19.1 % (15.3-44.8); MPV 8.4 fL (7.6-11.3)
[2019-07-17 00:03] LABS: Protime INR 1.08
[2019-07-17 00:19] LABS: ALT/SGPT 26 U/L (12-78); AST/SGOT 16 U/L (15-37); Albumin 3.7 g/dL (3.4-5.0); Alkaline Phosphatase 78 U/L (45-117); BUN Blood Urea Nitrogen 7 mg/dL (7-18); Bicarbonate 28 mmol/L (21-32); Bilirubin Direct 0.1 mg/dL (0-0.2); Bilirubin Total 0.3 mg/dL (0.2-1.0); Glucose Level 98 mg/dL (74-106); Lipase 180 U/L (73-393); Magnesium 1.9 mg/dL (1.8-2.4); NT PRO-BNP 105 pg/mL (<125); Potassium 3.7 mmol/L (3.5-5.1); Protein, Total 7.4 g/dL (6.4-8.2); Sodium Level 142 mmol/L (136-145); Troponin (Emerg Dept Use Only) < 0.02 ng/mL (0.0-0.045)
--- NOTE | 2019-07-17 00:25 | EDPHYS ---
Physician Documentation [facility] Name: Ned Stallworth Age: 43 yrs Sex: Male : 1975 Arrival Date: 07/16/2019 Time: 22:56 Bed 23 Private MD: ED Physician Reyes Chance HPI: 07/17 00:18 This 43 yrs old Male presents to ER via Ambulatory with complaints of High anabel Blood Pressure. 00:18 The patient has elevated blood pressure and discovered this at home. Onset: The anabel symptoms/episode began/occurred this morning, yesterday. Modifying factors: The symptoms are aggravated by movement, The symptoms are alleviated by remaining still. Associated signs and symptoms: Pertinent positives: dyspnea, nausea. Severity of symptoms: At its worst the blood pressure was moderate, in the emergency department the blood pressure is improved. The patient has not experienced similar symptoms in the past. Historical: - Allergies: 07/16 23:32 No Known Allergies; iw - Home Meds: 23:32 Adderall XR Oral [Active]; clonazepam Oral [Active]; iw - PMHx: 23:32 Alcoholism; iw - PSHx: 23:32 Knee surgery; iw - Immunization history:: Adult Immunizations not up to date. - Coronavirus screen:: The patient has NOT traveled to [place], [place], or [place] in the past 14 days. Proceed with normal triage process as indicated. - Social history:: Smoking status: . - Family history:: not pertinent. - Ebola Screening: : Patient negative for fever greater than or equal to 101.5 degrees Fahrenheit, and additional compatible Ebola Virus Disease symptoms Patient denies exposure to infectious person Patient denies travel to an Ebola-affected area in the 21 days before illness onset No symptoms or risks identified at this time. ROS: 07/17 00:18 Constitutional: Negative for fever, chills, and weight loss, Eyes: Negative for injury, anabel pain, redness, and discharge, ENT: Negative for injury, pain, and discharge, Neck: Negative for injury, pain, and swelling, Respiratory: Negative for shortness of breath, cough, wheezing, and pleuritic chest pain, Abdomen/GI: Negative for abdominal pain, nausea, vomiting, diarrhea, and constipation, Back: Negative for injury and pain, : Negative for injury, bleeding, discharge, and swelling, MS/Extremity: Negative for injury and deformity, Skin: Negative for injury, rash, and discoloration, Neuro: Negative for headache, weakness, numbness, tingling, and seizure, Psych: Negative for depression, anxiety, suicide ideation, homicidal ideation, and hallucinations, Allergy/Immunology: Negative for hives, rash, and allergies, Endocrine: Negative for neck swelling, polydipsia, polyuria, polyphagia, and marked weight changes, Hematologic/Lymphatic: Negative for swollen nodes, abnormal bleeding, and unusual bruising. Cardiovascular: Positive for chest pain, of the chest. Exam: 00:18 Constitutional: This is a well developed, well nourished patient who is awake, alert, anabel and in no acute distress. Head/Face: Normocephalic, atraumatic. Eyes: Pupils equal round and reactive to light, extra-ocular motions intact. Lids and lashes normal. Conjunctiva and sclera are non-icteric and not injected. Cornea within normal limits. Periorbital areas with no swelling, redness, or edema. ENT: Nares patent. No nasal discharge, no septal abnormalities noted. Tympanic membranes are normal and external auditory canals are clear. Oropharynx with no redness, swelling, or masses, exudates, or evidence of obstruction, uvula midline. Mucous membranes moist. Neck: Trachea midline, no thyromegaly or masses palpated, and no cervical lymphadenopathy. Supple, full range of motion without nuchal rigidity, or vertebral point tenderness. No Meningismus. Chest/axilla: Normal chest wall appearance and motion. Nontender with no deformity. No lesions are appreciated. Cardiovascular: Regular rate and rhythm with a normal S1 and S2. No gallops, murmurs, or rubs. Normal PMI, no JVD. No pulse deficits. Respiratory: Lungs have equal breath sounds bilaterally, clear to auscultation and percussion. No rales, rhonchi or wheezes noted. No increased work of breathing, no retractions or nasal flaring. Abdomen/GI: Soft, non-tender, with normal bowel sounds. No distension or tympany. No guarding or rebound. No evidence of tenderness throughout. Back: No spinal tenderness. No costovertebral tenderness. Full range of motion. Male : Normal genitalia with no discharge or lesions. Skin: Warm, dry with normal turgor. Normal color with no rashes, no lesions, and no evidence of cellulitis. MS/ Extremity: Pulses equal, no cyanosis. Neurovascular intact. Full, normal range of motion. Neuro: Awake and alert, GCS 15, oriented to person, place, time, and situation. Cranial nerves II-XII grossly intact. Motor strength 5/5 in all extremities. Sensory grossly intact. Cerebellar exam normal. Normal gait. Psych: Awake, alert, with orientation to person, place and time. Behavior, mood, and affect are within normal limits. 00:18 Musculoskeletal/extremity: DVT Exam: No signs of deep vein thrombosis. no pain, no swelling, no tenderness, negative Homans' sign noted on exam, no appreciated bluish discoloration, no erythema, no increased warmth. Vital Signs: 07/16 23:32 BP 138 / 111; Pulse 89; Resp 16; Temp 99.6; Pulse Ox 100% on R/A; Weight 86.18 kg; iw Height 6 ft. 0 in. (182.88 cm); 07/17 00:55 BP 146 / 105; Pulse 89; Resp 16; Pulse Ox 98% on R/A; iw 01:41 BP 154 / 106; Pulse 64; Resp 16; Pulse Ox 99% on R/A; iw 02:24 BP 153 / 92; Pulse 60; Resp 16; Pulse Ox 100% on R/A; iw 07/16 23:32 Body Mass Index 25.77 (86.18 kg, 182.88 cm) iw MDM: 07/16 23:34 Patient medically screened. [facility] 07/17 00:20 Data reviewed: vital signs, nurses notes, lab test result(s), EKG, radiologic studies, anabel plain films. 07/16 23:39 Order name: Basic Metabolic Panel; Complete Time: 00:24 [facility] 07/16 23:39 Order name: CBC with Diff; Complete Time: 00:17 [facility] 07/16 23:39 Order name: LFT's; Complete Time: 00:24 [facility] 07/16 23:39 Order name: Magnesium; Complete Time: 00:24 [facility] 07/16 23:39 Order name: NT PRO-BNP; Complete Time: 00:24 [facility] 07/16 23:39 Order name: PT-INR; Complete Time: 00:17 [facility] 07/16 23:39 Order name: Troponin (emerg Dept Use Only); Complete Time: 00:24 [facility] 07/16 23:39 Order name: Lipase; Complete Time: 00:24 [facility] 07/16 23:39 Order name: ETOH Level; Complete Time: 00:24 [facility] 07/16 23:39 Order name: UDS; Complete Time: 01:00 [facility] 07/17 00:28 Order name: Urine Dipstick--Ancillary (enter results); Complete Time: 01:00 07/17 06:08 Order name: CBC with Automated Diff [facility] 07/17 06:15 Order name: Protime (+INR) [facility] 07/17 06:20 Order name: Comprehensive Metabolic Panel [facility] 07/16 23:39 Order name: XRAY Chest (1 view) [facility] 07/16 23:39 Order name: EKG; Complete Time: 23:40 [facility] 07/16 23:39 Order name: Cardiac monitoring; Complete Time: 23:44 [facility] 07/16 23:39 Order name: EKG - Nurse/Tech; Complete Time: 23:54 [facility] 07/17 06:20 Order name: Magnesium [facility] 07/17 07:04 Order name: CKMB Creatine Kinase MB [facility] 07/17 07:04 Order name: Troponin I [facility] 07/17 07:04 Order name: Lipid Profile [facility] 07/17 07:04 Order name: Thyroid Stimulating Hormone [facility] 07/16 23:39 Order name: IV Saline Lock; Complete Time: 23:54 [facility] 07/16 23:39 Order name: Labs collected and sent; Complete Time: 23:54 [facility] 07/16 23:39 Order name: O2 Per Protocol; Complete Time: 23:54 [facility] 07/16 23:39 Order name: O2 Sat Monitoring; Complete Time: 23:54 [facility] 07/16 23:39 Order name: Urine Dipstick-Ancillary (obtain specimen); Complete Time: 00:36 [facility] Administered Medications: 07/16 23:55 Drug: Thiamine 100 mg Route: IV; Rate: per protocol; Site: right wrist; iw 07/17 00:00 Follow up: IV Status: Completed infusion iw 00:54 Drug: Norvasc 10 mg Route: PO; iw 01:53 Follow up: Response: No adverse reaction; Blood pressure is unchanged iw 00:54 Drug: Lovenox 80 mg Route: Sub-Q; Site: right lower abdomen; iw 01:22 Follow up: Response: No adverse reaction iw 00:54 Drug: Pepcid 20 mg Route: IVP; Site: right wrist; iw 01:23 Follow up: Response: No adverse reaction iw 00:55 Drug: Lopressor (metoprolol TARTRATE) 50 mg Route: PO; iw 01:23 Follow up: Response: No adverse reaction iw 02:28 Not Given (pt had 324 ASA today ): Aspirin Chewable Tablet 324 mg PO once; 81 mg iw tablets x 4 04:10 Not Given (Hemodynamic Parameters): cloNIDine 0.1 mg PO once iw Disposition: 07/17/19 00:23 Hospitalization ordered by Carmela Dougherty for Observation. Preliminary diagnosis are Essential (primary) hypertension, Chest pain, unspecified, Angina pectoris, Alcohol abuse. - Bed requested for [facility] ER HOLD. - Status is Observation. ss - Condition is Stable. - Problem is new. - Symptoms have improved. UTI on Admission? No Signatures: Dispatcher [employer] EDOR Reyes Chance MD MD cha Williams, Irene, RN RN Amy Matrin RN RN Debra Slaughter RN RN cg Corrections: (The following items were deleted from the chart) 01:03 00:23 Hospitalization Ordered by Carmela Dougherty MD for Observation. Preliminary diagnosis anabel is Essential (primary) hypertension; Chest pain, unspecified; Angina pectoris. Bed requested for Telemetry/MedSurg (observation). Status is Observation. Condition is Stable. Problem is new. Symptoms have improved. UTI on Admission? No. anabel 01:56 01:03 07/17/2019 00:23 Hospitalization Ordered by Carmela Dougherty MD for Observation. cg Preliminary diagnosis is Essential (primary) hypertension; Chest pain, unspecified; Angina pectoris; Alcohol abuse. Bed requested for Telemetry/MedSurg (observation). Status is Observation. Condition is Stable. Problem is new. Symptoms have improved. UTI on Admission? No. anabel 09:57 01:56 07/17/2019 00:23 Hospitalization Ordered by Carmela Dougheryt MD for Observation. ss Preliminary diagnosis is Essential (primary) hypertension; Chest pain, unspecified; Angina pectoris; Alcohol abuse. Bed requested for [facility] ER HOLD. Status is Observation. Condition is Stable. Problem is new. Symptoms have improved. UTI on Admission? No. cg
--- NOTE | 2019-07-17 00:25 | ER ---
Nurse's Notes [facility] Name: Ned Stallworth Age: 43 yrs Sex: Male : 1975 Arrival Date: 07/16/2019 Time: 22:56 Bed 23 Private MD: Diagnosis: Essential (primary) hypertension;Chest pain, unspecified;Angina pectoris;Alcohol abuse Presentation: 07/16 23:29 Presenting complaint: Patient states: BP has been running high today and his chest has iw been kind of tense , BP reading at home was 211/115 , not on BP meds, BP seems to elevate when he is exerting himself, mild headache. Transition of care: patient was not received from another setting of care. Onset of symptoms was July 16, 2019. Risk Assessment: Do you want to hurt yourself or someone else? Patient reports no desire to harm self or others. Initial Sepsis Screen: Does the patient meet any 2 criteria? No. Patient's initial sepsis screen is negative. Does the patient have a suspected source of infection? No. Patient's initial sepsis screen is negative. Care prior to arrival: None. 23:29 Method Of Arrival: Ambulatory iw 23:29 Acuity: ALISTAIR 3 iw Triage Assessment: 23:55 General: Appears in no apparent distress. uncomfortable, Behavior is anxious. Pain: ls4 Complains of pain in chest Pain currently is 1 out of 10 on a pain scale. Neuro: No deficits noted. Cardiovascular: Reports chest pain, lightheadedness, nausea, Denies palpitations, shortness of breath, syncope, Capillary refill < 3 seconds Patient's skin is warm and dry. Respiratory: No deficits noted. GI: No deficits noted. : No deficits noted. Derm: No deficits noted. Musculoskeletal: No deficits noted. Historical: - Allergies: 23:32 No Known Allergies; iw - Home Meds: 23:32 Adderall XR Oral [Active]; clonazepam Oral [Active]; iw - PMHx: 23:32 Alcoholism; iw - PSHx: 23:32 Knee surgery; iw - Immunization history:: Adult Immunizations not up to date. - Coronavirus screen:: The patient has NOT traveled to [place], [place], or [place] in the past 14 days. Proceed with normal triage process as indicated. - Social history:: Smoking status: . - Family history:: not pertinent. - Ebola Screening: : Patient negative for fever greater than or equal to 101.5 degrees Fahrenheit, and additional compatible Ebola Virus Disease symptoms Patient denies exposure to infectious person Patient denies travel to an Ebola-affected area in the 21 days before illness onset No symptoms or risks identified at this time. Screenin:44 Abuse screen: Denies threats or abuse. Denies injuries from another. Nutritional iw screening: No deficits noted. Tuberculosis screening: No symptoms or risk factors identified. Fall Risk IV access (20 points). Assessment: 23:39 General: Appears in no apparent distress. Behavior is calm, cooperative. Pain: iw Complains of pain in chest. Neuro: Level of Consciousness is awake, alert, obeys commands, Oriented to person, place, time, situation, Moves all extremities. Full function. Cardiovascular: Reports chest pain, lightheadedness, nausea, Capillary refill < 3 seconds in bilateral fingers. Respiratory: Respiratory effort is even, unlabored, Respiratory pattern is regular, symmetrical. GI: Abdomen is flat, non-distended. Derm: Skin is intact, is healthy with good turgor. Musculoskeletal: Range of motion: intact in all extremities. 07/17 00:55 Reassessment: Patient appears in no apparent distress at this time. Patient and/or iw family updated on plan of care and expected duration. Pain level reassessed. Patient is alert, oriented x 3, equal unlabored respirations, skin warm/dry/pink. 02:25 Reassessment: Patient appears in no apparent distress at this time. Patient and/or iw family updated on plan of care and expected duration. Pain level reassessed. Patient is alert, oriented x 3, equal unlabored respirations, skin warm/dry/pink. Vital Signs: 07/16 23:32 BP 138 / 111; Pulse 89; Resp 16; Temp 99.6; Pulse Ox 100% on R/A; Weight 86.18 kg; iw Height 6 ft. 0 in. (182.88 cm); 07/17 00:55 BP 146 / 105; Pulse 89; Resp 16; Pulse Ox 98% on R/A; iw 01:41 BP 154 / 106; Pulse 64; Resp 16; Pulse Ox 99% on R/A; iw 02:24 BP 153 / 92; Pulse 60; Resp 16; Pulse Ox 100% on R/A; iw 07/16 23:32 Body Mass Index 25.77 (86.18 kg, 182.88 cm) iw ED Course: 07/16 22:56 Patient arrived in ED. jg7 23:31 Triage completed. iw 23:34 Reyes Chance MD is Attending Physician. anabel 23:39 Kailey Champion RN is Primary Nurse. iw 23:55 Arm band placed on. ls4 23:57 No provider procedures requiring assistance completed. Inserted saline lock: 20 gauge ls4 in right antecubital area, using aseptic technique. Blood collected. 23:58 Patient has correct armband on for positive identification. Bed in low position. Call ls4 light in reach. Side rails up X2. hall monitor on. Pulse ox on. NIBP on. Verbal reassurance given. 07/17 00:01 XRAY Chest (1 view) In Process Unspecified. EDMS 00:21 Carmela Dougherty MD is Hospitalizing Provider. anabel 01:38 Patient admitted, IV remains in place. iw Administered Medications: 07/16 23:55 Drug: Thiamine 100 mg Route: IV; Rate: per protocol; Site: right wrist; iw 07/17 00:00 Follow up: IV Status: Completed infusion iw 00:54 Drug: Norvasc 10 mg Route: PO; iw 01:53 Follow up: Response: No adverse reaction; Blood pressure is unchanged iw 00:54 Drug: Lovenox 80 mg Route: Sub-Q; Site: right lower abdomen; iw 01:22 Follow up: Response: No adverse reaction iw 00:54 Drug: Pepcid 20 mg Route: IVP; Site: right wrist; iw 01:23 Follow up: Response: No adverse reaction iw 00:55 Drug: Lopressor (metoprolol TARTRATE) 50 mg Route: PO; iw 01:23 Follow up: Response: No adverse reaction iw 02:28 Not Given (pt had 324 ASA today ): Aspirin Chewable Tablet 324 mg PO once; 81 mg iw tablets x 4 04:10 Not Given (Hemodynamic Parameters): cloNIDine 0.1 mg PO once iw Outcome: 00:23 Decision to Hospitalize by Provider. anabel 04:20 Admitted to ER Hold. Please see [facility] for further documentation. iw 04:20 Condition: good 04:20 Discharge instructions given to patient, Instructed on the need for admit. 09:57 Patient left the ED. ss Signatures: Dispatcher [employer] Reyes Reddy MD MD cha Williams, Irene, RN RN iw Smirch, Shelby, RN RN ss Stewart, Lisa, RN RN ls4 Jennyfer García7
[2019-07-17] MEDS ORDERED: cloNIDine HCL 0.1 MG TAB ONE (00:43)
[2019-07-17 00:44] LABS: Urine Blood NEGATIVE (NEG); Urine Glucose NEGATIVE (NEG); Urine Protein NEGATIVE (NEG)
[2019-07-17] MEDS ORDERED: AMLODIPINE 5 MG TAB ONE (00:44)
[2019-07-17] MEDS ORDERED: METOPROLOL TAR 50 MG TAB ONE (00:44)
[2019-07-17] MEDS ORDERED: FAMOTIDINE 20 MG/2 ML VIAL IV ONE (00:44)
[2019-07-17] MEDS ORDERED: ENOXAPARIN 80 MG/0.8 ML SQ ONE (00:44)
[2019-07-17 00:49] LABS: Barbiturates NEGATIVE (NEGATIVE); Benzodiazepines NEGATIVE (NEGATIVE); Cocaine NEGATIVE (NEGATIVE); METHAMPHETAM POSITIVE (NEGATIVE); Methadone NEGATIVE (NEGATIVE); Opiates NEGATIVE (NEGATIVE); Phencyclidine NEGATIVE (NEGATIVE); THC Cannibis NEGATIVE (NEGATIVE)
--- NOTE | 2019-07-17 02:56 | P.HP ---
Certification for Inpatient Patient admitted to: Observation With expected LOS: <2 Midnights Patient will require the following post-hospital care: None Practitioner: I am a practitioner with admitting privileges, knowledge of patient current condition, hospital course, and medical plan of care. Services: Services provided to patient in accordance with Admission requirements found in Title 42 Section 412.3 of the Code of Federal Regulations Patient History Date of Service: 07/17/19 Reason for admission: chest pain/HTN History of Present Illness: magen ivey is a 43yoM w/ pmhx of ADHD who presents to the ED w/ chest tightness x 2 days. he states that he noted some mild chest tightness w/ radiation to the right shoulder that resolved. however friday the pain returned and this episode was more intense and longer in duration. thus he started taking his BP due to concern that his BP was abnormal (pt denies HTN) thus he noted a BP max of 211/115, thus he sought medical attention for further investigation. he was recently seen in the PCP office for medication refill w/o concern of BP at that time. he reports nausea, cp, decreased appettite. he denies sob, wright, orthopnea, cold sweat, racing HR, cough, fever, chills, syncope, dizziness, LE swelling, weight changes, bowel/bladder changes, back pain. tobacco use - dips- 3 cans/weekly etoh - daily drinker - beer etoh denies Allergies No Known Aller Allergy (Uncoded 12/27/16 21:41) Unknown No Known Allerg Allergy (Uncoded 11/18/17 20:18) Unknown No Known Allergies Allergy (Uncoded 02/12/18 23:48) Unknown Review of Systems General: As per HPI Eyes: Unremarkable ENT: Unremarkable Respiratory: As per HPI Cardiovascular: Chest Pain, As per HPI Gastrointestinal: Nausea, As per HPI Genitourinary: Unremarkable Neurological: Unremarkable Physical Examination - Physical Exam General: Alert, In no apparent distress, Oriented x3, Cooperative HEENT: Atraumatic, Normocephalic, PERRLA Neck: Supple Respiratory: Clear to auscultation bilaterally, Normal air movement Cardiovascular: No edema, Normal pulses, Regular rate/rhythm, No murmurs Capillary refill: <2 Seconds Gastrointestinal: Normal bowel sounds, Soft and benign, Non-distended, No tenderness, No guarding Musculoskeletal: No clubbing, No swelling Integumentary: No rashes, No breakdown, No significant lesion Neurological: Normal speech, Other (gait not tested) External genitalia: Deferred Rectal: Deferred - Studies Laboratory Data (last 24 hrs) 07/16/19 23:50: PT 12.7 H, INR 1.08 07/16/19 23:50: WBC 7.1, Hgb 14.4, Hct 42.4, Plt Count 279 07/16/19 23:50: Sodium 142, Potassium 3.7, BUN 7, Creatinine 1.02, Glucose 98, Magnesium 1.9, Total Bilirubin 0.3, AST 16, ALT 26, Alkaline Phosphatase 78, Lipase 180 Assessment and Plan - Plan 43yoM admitted w/ CP -atypical admit to obs obtain TSH, a1c, and lipid panel fitter on tele, supplemental o2, drug screen ordered start on daily ASA trend CE, will obtain TTE as well can consider stress test for further investigation HTN urgency can initiate on amlodipine if BP continues to remain elevated will monitor BP and o2 saturations and adjust antiHTN as needed tobacco dependence nicotine patch, IS and duonebs as needed Discharge Plan: Home - Advance Directives Does patient have a Living Will: No Does patient have a Durable POA for Healthcare: No
[2019-07-17] MEDS ORDERED: NITROGLYCERIN 0.4 MG/TAB SL PRN (03:15)
[2019-07-17] MEDS ORDERED: ONDANSETRON 4 MG/2 ML VIAL IV PRN (03:15)
[2019-07-17] MEDS ORDERED: MORPHINE 4 MG/ML SYR IV PRN (03:15)
[2019-07-17 03:26] VITALS: BMI 3710.2
[2019-07-17 05:59] LABS: Absolute Lymphocytes (CBC) 1.7 K/uL (0.7-4.9); Basophils % 0.3 % (0-1.3); Hematocrit 43.4 % (39.6-49.0); Lymphocytes % 22.4 % (15.3-44.8); MPV 8.1 fL (7.6-11.3); RBC Red Blood Cell Count 4.73 M/uL (4.33-5.43)
[2019-07-17 06:01] LABS: Protime INR 1.07
[2019-07-17] MEDS ORDERED: clonazePAM 0.5 MG TAB ONE (06:10)
[2019-07-17] MEDS ORDERED: clonazePAM 0.5 MG TAB PO PRN (06:11)
[2019-07-17 06:20] LABS: Albumin 3.7 g/dL (3.4-5.0); Bilirubin Total 0.5 mg/dL (0.2-1.0); Magnesium 2.1 mg/dL (1.8-2.4); Potassium 3.3 mmol/L (3.5-5.1); Protein, Total 7.5 g/dL (6.4-8.2)
[2019-07-17 07:04] LABS: CKMB Creatine Kinase MB < 1.0 ng/mL (0.3-3.6); HDL Cholesterol 59 mg/dL (40-60); LDL Cholesterol, Calculated 42 (<130); Troponin I < 0.02 ng/mL (0.0-0.045)
[2019-07-17 08:16] VITALS: BP 122/79; TEMP 98.2
[2019-07-17] MEDS ORDERED: ASPIRIN 325 MG TAB PO SCH (09:00)
[2019-07-17] MEDS ORDERED: AMLODIPINE 2.5 MG TAB PO SCH (09:00)
--- NOTE | 2019-07-17 09:35 | P.DS ---
Admission Date: 07/17/19 (Hospitalist) Discharge Date: 07/17/19 Disposition: ROUTINE DISCHARGE Discharge Condition: GOOD Reason for Admission: chest pain/HTN Brief History of Present Illness: Patient is 43 years of age admitted with chest pain atypical lasted for many hr he has had an episode of chest and therefore no risk factors no diabetes hypertension patient quit smoking denies any shortness of breath on exertion or chest pain on exertion blood pressure was mildly elevated this time he feels fine denies any chest pain as no evidence of acute myocardial damage ease EKGs normal enzymes negative final signs stable patient does have a history of alcohol abuse Plan to ambulate repeat EKG discharged home to follow up with the idea worker for an outpatient workup including his primary care physician there was no evidence of hypertension Hospital Course: Patient did well unremarkable hospital course discharge Vital Signs/Physical Exam: Temp Pulse Resp BP Pulse Ox 98.2 F 68 14 122/79 99 07/17/19 08:00 07/17/19 08:00 07/17/19 08:00 07/17/19 08:00 07/17/19 08:00 Laboratory Data at Discharge: WBC 7.8 K/uL (4.3-10.9) 07/17/19 05:45 Hgb 14.4 g/dL (13.6-17.9) 07/17/19 05:45 Hct 43.4 % (39.6-49.0) 07/17/19 05:45 Plt Count 258 K/uL (152-406) 07/17/19 05:45 PT 12.6 SECONDS (9.5-12.5) H 07/17/19 05:45 INR 1.07 07/17/19 05:45 Sodium 142 mmol/L (136-145) 07/17/19 05:45 Potassium 3.3 mmol/L (3.5-5.1) L 07/17/19 05:45 BUN 7 mg/dL (7-18) 07/17/19 05:45 Creatinine 1.04 mg/dL (0.55-1.3) 07/17/19 05:45 Glucose 88 mg/dL (74-106) 07/17/19 05:45 Magnesium 2.1 mg/dL (1.8-2.4) 07/17/19 05:45 Total Bilirubin 0.5 mg/dL (0.2-1.0) 07/17/19 05:45 AST 16 U/L (15-37) 07/17/19 05:45 ALT 26 U/L (12-78) 07/17/19 05:45 Alkaline Phosphatase 85 U/L (45-117) 07/17/19 05:45 Troponin I < 0.02 ng/mL (0.0-0.045) 07/17/19 05:45 Triglycerides 210 mg/dL (<150) H 07/17/19 05:45 Cholesterol 143 mg/dL (<200) 07/17/19 05:45 HDL Cholesterol 59 mg/dL (40-60) 07/17/19 05:45 Cholesterol/HDL Ratio 2.42 07/17/19 05:45 Lipase 180 U/L (73-393) 07/16/19 23:50 Home Medications: Dextroamphetamine/Amphetamine [Adderall 20 mg Tablet] 20 mg BID 07/17/19 clonazePAM [Clonazepam] 0.5 mg PO 30 MIN BEFORE HS 07/17/19 Patient Discharge Instructions: Patient to follow up with his primary care doctor and a idea worker Dr. Griffin or Dr. Maki. Follow up with his primary care physician in 1-2 weeks Diet: Regular Activity: Ad frances
[2019-07-17 10:54] VITALS: O2SAT 100
--- NOTE | 2019-07-17 11:30 | RAD REPORT ---
EXAM DESCRIPTION: RAD - Chest Single View - 07/17/2019 12:01 am CLINICAL HISTORY: COUGH Chest pain. COMPARISON: Chest Single View dated 11/18/2017; Chest Single View dated 12/27/2016 FINDINGS: Portable technique limits examination quality. The lungs are grossly clear. The heart is normal in size. No displaced fractures. IMPRESSION: No acute intrathoracic process suspected.
--- NOTE | 2019-07-18 09:43 | EKG ---
Test Date: 2019-07-16 Test Time: 23:57:40 Heel Coverer Machine Operator: ERUM MEASUREMENT RESULTS: Intervals: Rate: 72 MN: 120 QRSD: 80 QT: 396 QTc: 433 [place]: P: 38 MN: 120 QRS: 20 T: 50 INTERPRETIVE STATEMENTS: Normal sinus rhythm Normal ECG Compared to ECG 02/12/2018 21:09:10 Sinus tachycardia no longer present Electronically Signed On 07-18-19 09:42:37 [employer] by Daniel Griffin
== END 2019-07-17 09:57 | disposition home or self-care (01) ==
LOC: ER 22:53 → ERHOLD 07-17 02:49
PROVIDERS: ADMIT Internal Medicine; ATTEND Internal Medicine
DX: R07.89 Other chest pain (principal); I16.0 Hypertensive urgency; F17.210 Nicotine dependence, cigarettes, uncomplicated
CPT/HCPCS: 36415; 71045; 80048; 80053; 80061; 80076; 80307; 80320; 81003; 82553; 83036; 83690; 83735; 83880; 84443; 84484; 85025; 85610; 93005; 96372; 96374; 96375; 99285; G0378; J1650

== ENCOUNTER 2022-08-07 12:21 | Emergency (ER) | payer OTHER, SELFPAY ==
--- OUTSIDE RECORDS SUMMARY | 2022-08-07 12:24 | XMS REPORT | Continuity of Care Document ---
:1975 Author Organization [facility] t Address [address] [place] [address] Care Team Providers Name Role Phone RAJINDER RAWLS Primary Care Physician Unavailable ALISON MORAES Attending Clinician Unavailable Alison Moraes DO Attending Clinician PRASHANTH SIMMONS Attending Clinician Unavailable DOYLE STOREY Attending Clinician Unavailable MAUREEN BORDEN Attending Clinician Unavailable NIEVES SIMMONS Attending Clinician Unavailable TATY RUANO Attending Clinician Unavailable JENNIFER ENGLE Attending Clinician Unavailable ALISON MORAES Admitting Clinician Unavailable JENNIFER ENGLE Admitting Clinician Unavailable Payers Payer Name Policy Type Policy Number Effective Date Expiration Date S anmol COMMERCIAL [id number] 2020 NON-CONTRACT 00:00:00 GENERIC Problems Condition Condition Condition Status Onset Resolution Last Treating Co mments Source Name Details Category Date Date Treatment Clinician Date Cervicalgi Cervicalgi Disease Active U nivers a a 4-27 ity of 00:00: [address] Left-sided Left-sided Disease Active 0 U nivers weakness weakness 1-26 ity of 00:00: [address] Allergies, Adverse Reactions, Alerts Allergy Allergy Status Severity Reaction(s) Onset Inactive Treating Comm ents Source Name Type Date Date Clinician NO KNOWN Drug Active Univers ALLERGIE Class ity of S [facility] Social History Social Habit Start Date Stop Date Quantity Comments Source History of tobacco Snuff User Univer sity of use [facility] Exposure to 2021-11-11 2021-11-21 Not sure [facility] SARS-CoV-2 (event) 00:00:00 22:51:00 [facility] Alcohol intake 2021-11-21 2021-11-21 2.57 /d University of 00:00:00 00:00:00 [facility] Cigarettes smoked 2020-09-18 2020-09-18 Univers ity of current (pack per 00:00:00 00:00:00 [facility] ) - Reported Branch Cigarette 2020-09-18 2020-09-18 University of pack-years 00:00:00 00:00:00 [facility] Tobacco use and 2020-09-18 2020-09-18 Current user Univers ity of exposure 00:00:00 00:00:00 [facility] History SDOH 2020-07-18 2020-07-18 5 University o f Alcohol Frequency 00:00:00 00:00:00 [facility] Branch History SDOH 2020-07-18 2020-07-18 5 [place] o f Alcohol Std Drinks 00:00:00 00:00:00 [facility] History SDOH 2020-07-18 2020-07-18 5 [place] o f Alcohol Binge 00:00:00 00:00:00 [facility] [place] Alcohol Comment 2020-07-18 2020-07-18 since he was 17 Univ ersity of 00:00:00 00:00:00 [facility] Sex Ass[birth year] At [birth year] Universit y of 00:00:00 00:00:00 [facility] Smoking Status Start Date Stop Date Source Former smoker 2020-09-18 00:00:00 2020-09-18 00:00:00 [facility] [place] [facility] Medications Ordered Filled Start Stop Current Ordering Indication Dosage Frequency Signature Comments Components Source Medication Medication Date Date Medication? Clinician (SIG) Name Name maalox:diph No 15mL 15 mL, Uni vers enhydrAMINE 11-22 Oral, ity of :lidocaine 06:00: 05:04 ONCE, 1 [place] as 2 % viscous 00 :00 dose, On Medi raj 1:1:1 [place] 11/22/21 Branch ([facility]MOUT at 0100, [facility]) Routine oral suspension 15 mL methocarbam Yes [id number] 750mg Take 1 Univers oL 7-30 tablet by ity of (ROBAXIN-75 00:00: mouth 3 [place] as 0) 750 mg 00 (three) Medical tablet times [place] daily as needed for Pain (scale 1-3). meloxicam Yes 15mg Take 1 Univer s 15 mg 7-30 tablet by ity of tablet 00:00: mouth [place] 00 daily. Medical Branch methylPREDN Yes [id number] Take by [facility] ISolone 4-27 mouth ity of (MEDROL, 00:00: SEE-INSTRU [place] as JEAN CARLOS,) 4 mg 00 CTIONS. Medica l tablets follow [place] package directions lisinopriL Yes [id number] 10mg Take 1 Univers 10 mg 1-29 tablet by ity of tablet 00:00: mouth [place] 00 daily. Medical Branch atorvastati Yes [id number] 80mg Take 1 Univers n 80 mg 1-28 tablet by ity of tablet 00:00: mouth at [place] 00 bedtime. [facility] Vital Signs Vital Name Observation Time Observation Value Comments Source Systolic blood 2021-11-22 03:54:00 137 mm[Hg] [facility] sity of pressure [facility] Diastolic blood 2021-11-22 03:54:00 85 mm[Hg] [facility] Heart rate 2021-11-22 03:54:00 78 /min [facility] Body temperature 2021-11-22 03:54:00 37.22 [facility] Respiratory rate 2021-11-22 03:54:00 18 /[facility] Body height 2021-11-22 03:54:00 182.9 cm [facility] Body weight 2021-11-22 03:54:00 90.719 kg [facility] BMI 2021-11-22 03:54:00 27.12 kg/m2 [facility] Oxygen saturation in 2021-11-22 03:54:00 95 /min [facility] Arterial blood by [facility] Pulse oximetry [place] Procedures Procedure Date / Time Performed Performing Clinician Mohamud e XR CHEST 1 VW 2021-11-22 04:59:17 Alison Moraes [facility] TROPONIN I 2021-11-22 04:39:00 Alison Moraes [facility] LIPASE 2021-11-22 04:11:00 Alison Moraes [facility] COMP. METABOLIC PANEL 2021-11-22 04:11:00 Alison Moraes [facility] ([id number]) [facility] CBC WITH DIFF 2021-11-22 04:11:00 Alison Moraes [facility] NOTICE OF PRIVACY 2021-11-22 03:54:31 Doctor Unassigned, No Univ [facility] PRACTICES Name [facility] CONSENT/REFUSAL FOR 2021-11-22 03:45:48 Doctor Unassigned, No [facility] DIAGNOSIS AND Name [facility] TREATMENT Encounters Start End Encounter Admission Attending Care Care Encounter Source Date/Time Date/Time Type Type Clinicians Facility Department ID 2021-11-21 2021-11-22 Emergency X DIMITRY [facility] ERT [id number] Univers 23:29:00 02:04:[facility] 2021-11-21 2021-11-22 [id number] Univers 23:29:00 02:04:00 Alison TAY [id number] [facility] [id number] [facility] [id number] [place] [id number] Branch 2021-02-01 2021-02-01 Outpatient Socorro SIMMONS [facility] [id number] Univers 15:20:00 15:20:00 PRASHANTH [facility] 2021-01-19 2021-01-19 Outpatient Socorro STOREY [facility] [id number] Univers 10:00:00 10:00:00 DOYLE [facility] 2020-11-22 2020-11-22 Outpatient MAUREEN WEBSTER [facility] [id number] Univers 10:30:00 10:30:00 [facility] 2020-11-13 2020-11-13 Outpatient NIEVES STEPHENSON [facility] [id number] Univers 09:00:00 09:00:00 [facility] 2020-10-28 2020-10-28 Outpatient R NIEVES SIMMONS [facility] [id number] Univers 09:39:49 09:40:00 [facility] 2020-10-17 2020-10-17 Outpatient R BINDU [facility] [id number] Univers 10:00:00 10:00:00 TATY [facility] 2020-09-18 2020-09-18 Outpatient R MAUREEN BORDEN [facility] [id number] Univers 13:00:00 13:00:00 [facility] 2020-07-18 2020-07-20 Outpatient X KADIE, [facility] TEO [id number] Univers 12:11:00 19:25:00 JENNIFER [facility] Results Test Description Test Time Test Comments Results Result Comments Source TROPONIN I 2021-11-22 05:03:23 Test Item Value Reference Range Interpretation Comme nts TROPONIN I (test code = <0.012 See_Comment [Au tomated message] The [id number]) system which ge nerated this result tra nsmitted reference range : <=0.034 ng/mL. The refe rence range was not u sed to interpret this result as normal/abnormal . CRISPIN (test code = CRISPIN) Reference (Normal) Range (defined by the 99th percentile reference limit): <= 0.034 ng/mL Note: Cardiac troponin begins to rise 3-4 hours after the onset of ischemia. Repeat in 4-6 hours if the sample was drawn within 3-4 hours of the onset of the symptom and found normal. Diagnosis of myocardial injury is made with acute changes in cTn concentrations with at least one serial sample above the 99th percentile upper reference limit (URL), taken together with the patient's clinical presentation. Biotin has been reported to cause a negative bias, interpret results relative to patient's use of biotin. Lab Interpretation Normal (test code = 61845-9) [facility]. METABOLIC PANEL (61421)2021-11-22 04:40:32 Test Item Value Reference Range Interpretation Comments NA (test code = 135 mmol/L 135-145 4886727392) K (test code = 4.2 mmol/L 3.5-5.0 9607990317) CL (test code = 98 mmol/L 98-108 5212153848) CO2 TOTAL (test code = 20 mmol/L 23-31 L 5442505623) AGAP (test code = 2-16 H 0993109906) BUN (test code = 7 mg/dL 7-23 9226201945) GLUCOSE (test code = 118 mg/dL 70-110 H 1889124886) CREATININE (test code = 0.94 mg/dL 0.60-1.25 6103583111) TOTAL BILI (test code = 0.5 mg/dL 0.1-1.0 0619362398) CALCIUM (test code = 8.8 mg/dL 8.6-10.6 8514541476) T PROTEIN (test code = 8.1 g/dL 6.3-8.2 4553190330) ALBUMIN (test code = 4.8 g/dL 3.5-5.0 3991081829) ALK PHOS (test code = 49 U/L 34-122 9760053650) ALTv (test code = 71 U/L 5-50 H 1742-6) AST(SGOT) (test code = 73 U/L 13-40 H 2910445284) eGFR (test code = mL/min/1.73m2 3690033444) CRISPIN (test code = CRISPIN) Association of Glomerular Filtration Rate (GFR) and Staging of Kidney Disease* + --+ --+ ------+| GFR (mL/min/1.73 m2) ?| With Kidney Damage ?| ?Without Kidney Damage+ --------+ --------+ +| ?>90 ?| ?Stage one ?| ? Normal ?+ ---+ ---+ -------+| ?60-89 ?| ?Stage two ?| ? Decreased GFR ? + --+ --+ ------+| ?30-59 ?| ?Stage three ?| ? Stage three ? + --+ --+ ------+| ?15-29 ?| ?Stage four ? | ? Stage four ?+ ---+ ---+ -------+| ?<15 (or dialysis) ? ?| ?Stage five ? | ? Stage five ?+ ---+ ---+ -------+ *Each stage assumes the associated GFR level has been in effect for at least three months. ?Stages 1 to 5, with or without kidney disease, indicate chronic kidney disease. Notes: Determination of stages one and two (with eGFR >59mL/min/1.73 m2) requires estimation of kidney damage for at least three months as defined by structural or functional abnormalities of the kidney, manifested by either:Pathological abnormalities or Markers of kidney damage (including abnormalities in the composition of the blood or urine or abnormalities in imaging tests). Lab Interpretation Abnormal (test code = 63093-3) [facility] [id number] 04:39:22 Test Item Value Reference Range Interpretation Comments LIPASE (test code = 9377901415) 102 U/L 0-220 Lab Interpretation (test code = Normal 12033-1) [facility] [id number] 04:25:21 Test Item Value Reference Range Interpretation Comments WBC (test code = See_Comment [Automated 3390-2) message] The sy stem which generated this result transmitted reference range : 4.20 - 10.70 10*3/?L. The reference range was not used to interpret this result as normal/abnormal . RBC (test code = See_Comment [Automated 119-8) message] The sy stem which generated this result transmitted reference range : 4.26 - 5.52 10*6/?L. The reference range was not used to interpret this result as normal/abnormal . HGB (test code = 13.7 g/dL 12.2-16.4 718-7) HCT (test code = 40.0 % 38.4-49.3 4544-3) MCV (test code = 92.6 fL 81.7-95.6 787-2) MCH (test code = 31.7 pg 26.1-32.7 785-6) MCHC (test code = 34.3 g/dL 31.2-35.0 786-4) RDW-SD (test code = 39.7 fL 38.5-51.6 28206-3) RDW-CV (test code = 11.6 % 12.1-15.4 L 788-0) PLT (test code = See_Comment [Automated 977-3) message] The sy stem which generated this result transmitted reference range : 150 - 328 10*3/ ?L. The reference r louisa was not used to interpret this result as normal/abnormal . MPV (test code = 9.9 fL 9.8-13.0 49356-3) NRBC/100 WBC (test See_Comment [Automat ed code = 9390165933) message] The system which generated this result transmitted reference range : 0.0 - 10.0 /100 WBCs. The refer ence range was not u sed to interpret th is result as normal/abnormal . NRBC x10^3 (test code <0.01 See_Comment [Auto mated = 9886227244) message] The s ystem which generated this result transmitted reference range : 10*3/?L. The reference range was not used to interpret this result as normal/abnormal . GRAN MAT (NEUT) % 43.2 % (test code = 770-8) IMM GRAN % (test code 0.50 % = 4712916004) LYMPH % (test code = 36.2 % 736-9) MONO % (test code = 12.7 % 5905-5) EOS % (test code = 6.4 % 713-8) BASO % (test code = 1.0 % 706-2) GRAN MAT x10^3(ANC) 2.55 10*3/uL 1.99-6.95 (test code = 6416441732) IMM GRAN x10^3 (test 0.03 10*3/uL 0.00-0.06 code = 7786324366) LYMPH x10^3 (test code 2.14 10*3/uL 1.09-3.23 = 731-0) MONO x10^3 (test code 0.75 10*3/uL 0.36-1.02 = 742-7) EOS x10^3 (test code = 0.38 10*3/uL 0.06-0.53 711-2) BASO x10^3 (test code 0.06 10*3/uL 0.01-0.09 = 704-7) Lab Interpretation Abnormal (test code = 36950-7) [facility]"
--- NOTE | 2022-08-07 13:14 | RAD REPORT ---
EXAM DESCRIPTION: CT - Head Brain Wo Cont - 08/07/2022 1:03 pm CLINICAL HISTORY: Trauma COMPARISON: Head Brain Wo Cont dated 11/18/2017 TECHNIQUE: All CT scans are performed using dose optimization technique as appropriate and may inclu de automated exposure control or mA/KV adjustment according to patient size. FINDINGS: No intracranial hemorrhage, hydrocephalus or extra-axial fluid collection.No areas of brai n edema or evidence of midline shift. Circumferential thickening within the maxillary sinuses bilaterally. The calvarium is intact. IMPRESSION: No acute intracranial abnormality.
[2022-08-07 13:45] LABS: Absolute Lymphocytes (CBC) 0.4 K/uL (0.7-4.9); Hematocrit 37.5 % (39.6-49.0); Lymphocytes % 7.2 % (15.3-44.8); MPV 8.1 fL (7.6-11.3); RBC Red Blood Cell Count 4.03 M/uL (4.33-5.43)
[2022-08-07 13:50] LABS: Protime INR 1.06
[2022-08-07] MEDS ORDERED: LORazepam 2 MG/ML VIAL ONE (13:54)
[2022-08-07] MEDS ORDERED: TDAP (DIPHTH,PERTUSS(ACELL),TET VAC) 0.5 ML VIAL IMVAC ONE (14:10)
[2022-08-07 14:14] LABS: Albumin 3.9 g/dL (3.4-5.0); Bilirubin Total 0.6 mg/dL (0.2-1.0); Potassium 4.1 mmol/L (3.5-5.1); Protein, Total 7.8 g/dL (6.4-8.2)
--- NOTE | 2022-08-07 16:26 | RAD REPORT ---
EXAM DESCRIPTION: RAD - Chest Single View - 08/07/2022 4:16 pm CLINICAL HISTORY: CHEST PAIN COMPARISON: Chest Pa And Lat (2 Views) dated 02/20/2021; Chest Single View dated 07/16/2019; Chest Sin gle View dated 11/18/2017; Chest Single View dated 12/27/2016 FINDINGS: Lines: None. Lungs: No evidence of edema or pneumonia. Pleural: No significant pleural effusions or pneumothorax. Cardiac: The heart size is within normal limits. Mediastinum: Within normal limits. Bones: No acute fractures. Other: None IMPRESSION: No acute cardiopulmonary disease.
--- NOTE | 2022-08-07 16:56 | EDPHYS ---
Physician Documentation [facility] Name: Ned Stallworth Age: 46 yrs Sex: Male : 1975 Arrival Date: 08/07/2022 Time: 12:38 Bed 25 Private MD: ED Physician Walter Luevano HPI: 08/07 14:19 This 46 yrs old Male presents to ER via EMS with complaints of Seizure. kb 14:19 The patient presents after having a single isolated seizure, that lasted 30 second(s). kb Character of seizure(s): Loss of consciousness: the patient experienced loss of consciousness, Motor activity: generalized, shaking all over, Incontinence: none. Seizure onset: just prior to arrival. Context: the seizure(s) was witnessed, occurred at work, occurred while the patient was walking, Contributing factors: unknown. Seizure Hx: Cause: unknown, Seizure medications: none, 2 previous seizures. Associated injury: Head/face: laceration, 2 cm(s), pain. Current symptoms: Currently, the patient is not experiencing any symptoms. The patient has experienced similar episodes in the past, a few times. The patient has not recently seen a physician. Historical: - Allergies: 12:40 No Known Allergies; bp - Home Meds: 12:40 aspirin 81 mg Oral TbEC 1 tab once daily [Active]; Lisinopril Oral [Active]; bp - PMHx: 12:40 Alcoholism; Hypertensive disorder; Seizure; bp - Immunization history:: Adult Immunizations up to date. - Social history:: Smoking status: Patient denies any tobacco usage or history of. ROS: 14:18 Constitutional: Negative for fever, chills, and weight loss. kb 14:18 Skin: Positive for laceration(s), of the left frontal area. 14:18 Neuro: Positive for seizure activity. 14:18 All other systems are negative. Exam: 14:17 Constitutional: This is a well developed, well nourished patient who is awake, alert, kb and in no acute distress. ENT: Moist Mucous membranes Cardiovascular: Regular rate and rhythm with a normal S1 and S2. No gallops, murmurs, or rubs. No pulse deficits. Respiratory: Respirations even and unlabored. No increased work of breathing. Talking in full sentences Abdomen/GI: Soft, non-tender. No distention MS/ Extremity: Pulses equal, no cyanosis. Neurovascular intact. Full, normal range of motion. Neuro: Awake and alert, GCS 15, oriented to person, place, time, and situation. Moves all extremities. Normal gait. Psych: Awake, alert, with orientation to person, place and time. Behavior, mood, and affect are within normal limits. 14:17 ECG was reviewed by the Attending Physician. 14:17 Skin: injury, laceration(s), the wound is approximately 2 cm(s), of the left frontal area, that can be described as clean, no foreign body, irregular, without bleeding. Vital Signs: 12:38 BP 159 / 101; Pulse 101; Pulse Ox 100% ; bp 12:40 BP 124 / 93; Pulse 95; Resp 17; Pulse Ox 97% ; bp 14:11 BP 128 / 89; Pulse 110; Resp 14; Pulse Ox 98% on 2 lpm NC; bp 15:42 BP 135 / 77; Pulse 79; Resp 19; Pulse Ox 98% ; bp 18:03 BP 136 / 79; Pulse 90; Resp 17; Pulse Ox 99% ; bp Nelson Coma Score: 12:40 Eye Response: spontaneous(4). Verbal Response: oriented(5). Motor Response: obeys bp commands(6). Total: 15. MDM: 12:43 Patient medically screened. kb 14:17 Data reviewed: vital signs, nurses notes. 08/07 12:48 Order name: CBC with Diff 08/07 12:48 Order name: Magnesium 08/07 12:48 Order name: Protime (+inr) 08/07 12:48 Order name: Ptt, Activated 08/07 12:48 Order name: Troponin High Sensitivity 08/07 12:48 Order name: CMP 08/07 13:47 Order name: CBC with Automated Diff; Complete Time: 13:58 EDMS 08/07 13:50 Order name: Protime (+INR); Complete Time: 13:58 EDMS 08/07 13:50 Order name: PTT, Activated Partial Thromb; Complete Time: 13:58 EDMS 08/07 14:14 Order name: Comprehensive Metabolic Panel; Complete Time: 14:15 EDMS 08/07 14:14 Order name: Troponin High Sensitivity; Complete Time: 14:15 EDMS 08/07 14:14 Order name: Magnesium; Complete Time: 14:15 EDMS 08/07 15:47 Order name: Troponin HS kb 08/07 16:29 Order name: Troponin High Sensitivity; Complete Time: 16:32 EDMS 08/07 12:48 Order name: EKG; Complete Time: 12:48 kb 08/07 12:48 Order name: Cardiac monitoring; Complete Time: 12:52 kb 08/07 12:48 Order name: EKG - Nurse/Tech; Complete Time: 14:10 kb 08/07 12:48 Order name: IV Saline Lock; Complete Time: 13:25 kb 08/07 12:48 Order name: Labs collected and sent; Complete Time: 13:30 kb 08/07 12:48 Order name: NPO; Complete Time: 12:51 kb 08/07 12:48 Order name: O2 Per Protocol; Complete Time: 12:51 kb 08/07 12:48 Order name: O2 Sat Monitoring; Complete Time: 12:51 kb 08/07 12:48 Order name: CT Head Brain wo Cont kb 08/07 13:15 Order name: CT; Complete Time: 13:17 EDMS 08/07 15:48 Order name: Chest Single View XRAY kb 08/07 16:27 Order name: RAD; Complete Time: 16:32 EDMS 08/07 13:59 Order name: Wound Care; Complete Time: 15:42 kb EC:17 Rate is 74 beats/min. Rhythm is regular. QRS [place] is Normal. HI interval is normal at kb 140 msec. QRS interval is normal at 82 msec. QT interval is normal at 457 msec. Administered Medications: 13:54 Drug: Ativan (LORazepam) 2 mg Route: IVP; Site: right wrist; ss 14:10 Follow up: Response: No adverse reaction bp 14:10 Drug: Boostrix Tdap 0.5 ml Route: IM; Site: left deltoid; bp 15:42 Follow up: Response: No adverse reaction bp 17:15 Drug: Librium - chlordiazePOXIDE 50 mg Route: PO; bp 18:05 Follow up: Response: No adverse reaction bp Disposition Summary: 08/07/22 16:55 Discharge Ordered Location: Home kb Condition: Stable kb Diagnosis - Other seizures kb - Laceration without foreign body of other part of head kb - Unspecified injury of head, initial encounter kb Followup: kb - With: Emergency Department - When: As needed - Reason: Worsening of condition Followup: kb - With: Private Physician - When: 2 - 3 days - Reason: Recheck today's complaints, Continuance of care, Re-evaluation by your physician Discharge Instructions: - Discharge Summary Sheet kb - Laceration Care, Adult, [id number] kb - Seizure, Adult, Rqca-ju-Caaf kb - Head Injury, Adult, Ibtu-te-Nhrj kb Forms: - Medication Reconciliation Form kb - Thank You Letter kb - Antibiotic Education kb - Prescription Opioid Use kb - Work release form Signatures: Dispatcher [employer] EDMS Nohemi Borja, [employer]-C ANI-Amy Escobedo, RN RN Carlton Johansen, RN RN bp
--- NOTE | 2022-08-07 16:56 | ER ---
Nurse's Notes [facility] Name: Ned Stallworth Age: 46 yrs Sex: Male : 1975 Arrival Date: 08/07/2022 Time: 12:38 Bed 25 Private MD: Diagnosis: Other seizures;Laceration without foreign body of other part of head;Unspecified injury of head, initial encounter Presentation: 08/07 12:38 Chief complaint: EMS states: WITNESSED SEIZURE AT WORK, \R\30 SEC, WITH FALL AND LEFT bp PARIETAL HEAD LAC. Coronavirus screen: At this time, the client does not indicate any symptoms associated with coronavirus-19. Ebola Screen: No symptoms or risks identified at this time. Initial Sepsis Screen: Does the patient meet any 2 criteria? No. Patient's initial sepsis screen is negative. Does the patient have a suspected source of infection? No. Patient's initial sepsis screen is negative. Risk Assessment: Do you want to hurt yourself or someone else? Patient reports no desire to harm self or others. Onset of symptoms was August 07, 2022 at 12:15. Care prior to arrival: IV initiated. 20 GA, in the right forearm, Glucose check: 124. 12:38 Method Of Arrival: EMS: [facility] bp 12:38 Acuity: ALISTAIR 3 bp Triage Assessment: 12:40 General: Appears in no apparent distress. Behavior is calm, cooperative, appropriate bp for age. Pain: Complains of pain in head. EENT: No deficits noted. Neuro: Reports SEIZURE. Cardiovascular: No deficits noted. Respiratory: No deficits noted. GI: No signs and/or symptoms were reported involving the gastrointestinal system. : No signs and/or symptoms were reported regarding the genitourinary system. Derm: No deficits noted. Musculoskeletal: No deficits noted. Injury Description: Laceration sustained to face. Historical: - Allergies: 12:40 No Known Allergies; bp - Home Meds: 12:40 aspirin 81 mg Oral TbEC 1 tab once daily [Active]; Lisinopril Oral [Active]; bp - PMHx: 12:40 Alcoholism; Hypertensive disorder; Seizure; bp - Immunization history:: Adult Immunizations up to date. - Social history:: Smoking status: Patient denies any tobacco usage or history of. Screenin:49 [facility] ED Fall Risk Assessment (Adult) History of falling in the last 3 months, bp including since admission Yes- physiologic fall (2 pts). Abuse screen: Denies threats or abuse. Denies injuries from another. Nutritional screening: No deficits noted. Tuberculosis screening: No symptoms or risk factors identified. Assessment: 12:47 General: SEE IN TRIAGE NOTE. bp 14:11 Reassessment: PT EXHIBITED SZ-LIKE ACTIVITY BUT REMAINED VERBAL AND CONSCIOUS DURING bp EPISODE. PROVIDER AWARE. 15:42 Reassessment: No changes from previously documented assessment. Patient and/or family bp updated on plan of care and expected duration. Pain level reassessed. Vital Signs: 12:38 BP 159 / 101; Pulse 101; Pulse Ox 100% ; bp 12:40 BP 124 / 93; Pulse 95; Resp 17; Pulse Ox 97% ; bp 14:11 BP 128 / 89; Pulse 110; Resp 14; Pulse Ox 98% on 2 lpm NC; bp 15:42 BP 135 / 77; Pulse 79; Resp 19; Pulse Ox 98% ; bp 18:03 BP 136 / 79; Pulse 90; Resp 17; Pulse Ox 99% ; bp [place] Coma Score: 12:40 Eye Response: spontaneous(4). Verbal Response: oriented(5). Motor Response: obeys bp commands(6). Total: 15. ED Course: 12:38 Patient arrived in ED. bp 12:40 Triage completed. bp 12:40 Arm band placed on. bp 12:43 Nohemi Borja FNP-C is PHCP. kb 12:43 Walter Luevano MD is Attending Physician. kb 12:49 Patient has correct armband on for positive identification. Bed in low position. Call bp light in reach. Side rails up X2. 12:49 Maintain EMS IV. Dressing intact. Good blood return noted. Site clean \T\ dry. Gauge \T\ bp site: 20 R FA. 13:24 Carlton Johansen, AUBREY is Primary Nurse. bp 18:03 No provider procedures requiring assistance completed. IV discontinued, intact, bp bleeding controlled, No redness/swelling at site. Pressure dressing applied. Administered Medications: 13:54 Drug: Ativan (LORazepam) 2 mg Route: IVP; Site: right wrist; ss 14:10 Follow up: Response: No adverse reaction bp 14:10 Drug: Boostrix Tdap 0.5 ml Route: IM; Site: left deltoid; bp 15:42 Follow up: Response: No adverse reaction bp 17:15 Drug: Librium - chlordiazePOXIDE 50 mg Route: PO; bp 18:05 Follow up: Response: No adverse reaction bp Medication: 18:03 VIS not applicable for this client. bp Outcome: 16:55 Discharge ordered by . kb 18:03 Discharged to home ambulatory, with family. bp 18:03 Condition: stable 18:03 Discharge instructions given to patient, Instructed on discharge instructions, follow up and referral plans. Demonstrated understanding of instructions, follow-up care. 18:05 Patient left the ED. bp Signatures: Nohemi Borja, CERTIFIED FLEX ENDOSCOPE REPROCESSOR-C ANI-Amy Escobedo RN RN ss Carlton Johansen, AUBREY RN bp
[2022-08-07] MEDS ORDERED: chlordiazePOXIDE HCl 25 MG CAP ONE (17:16)
[2022-08-07 18:36] VITALS: BP 136/79; O2SAT 99
--- NOTE | 2022-08-08 11:53 | EKG ---
Test Date: 2022-08-07 Test Time: 13:37:14 Joint Yarner: BP MEASUREMENT RESULTS: Intervals: Rate: 74 TX: 140 QRSD: 82 QT: 412 QTc: 457 [place]: P: 38 TX: 140 QRS: 25 T: 57 INTERPRETIVE STATEMENTS: Normal sinus rhythm Normal ECG Compared to ECG 07/16/2019 23:57:40 No significant changes Electronically Signed On 08-08-22 11:51:32 ACCOUNTS ADMINISTRATOR by Hector Brower
== END 2022-08-07 18:05 | disposition home or self-care (01) ==
LOC: ER 12:21
DX: G40.89 Other seizures (principal); S01.81XA Laceration without foreign body of other part of head, initial encounter; F10.20 Alcohol dependence, uncomplicated; I10 Essential (primary) hypertension
CPT/HCPCS: 36415; 70450; 71045; 80053; 83735; 84484; 85025; 85610; 85730; 93005